=== PATIENT | female | born 1965 | race African-American/Black ===

== ENCOUNTER 2021-02-23 00:17 | Emergency (ER) | payer MEDICAID ==
[~2021-02-23] VITALS: Ht 154.9 cm; Wt 90.9 kg
[2021-02-23] MEDS ORDERED: QUET300T2 PO (00:25)
[2021-02-23 02:09] LABS: COVID AG,FIA SOURCE NASOPHARYNGEAL
[2021-02-23 02:35] LABS: EOSINOPHILS % (AUTO) 1.5 % (1.0-6.0); HEMATOCRIT 46.8 % (36-46); HEMOGLOBIN 15.6 g/dL (12.0-16.0); LYMPHOCYTES # (AUTO) 1.5 K/uL (1.0-4.8); LYMPHOCYTES % (AUTO) 26.4 % (22.0-44.0); MEAN CORPUSCULAR HEMOGLOBIN 29.7 pg (26.0-34.0); MEAN CORPUSCULAR HGB CONC 33.2 G/dL (31.0-37.0); MEAN CORPUSCULAR VOLUME 90 fL (80-100); MONOCYTES # (AUTO) 0.5 K/uL (0.1-1.0); MONOCYTES % (AUTO) 9.1 % (2.0-9.0); NEUTROPHILS # (AUTO) 3.6 K/uL (1.8-7.7); PLATELET COUNT (AUTO) 402 K/uL (150-450); RED BLOOD CELL COUNT(AUTO) 5.23 MIL/uL (4.00-5.20); RED CELL DISTRIBUTION WIDTH 15.3 % (11.5-14.5)
[2021-02-23 02:36] LABS: ANION GAP 6 mmol/L (8-16); CALCIUM, TOTAL 10.4 mg/dL (8.8-10.5); CARBON DIOXIDE 30 mmol/L (22-29); CHLORIDE 95 mmol/L (98-107); CREATININE 0.54 mg/dL (0.60-1.30); GLUCOSE,RANDOM 226 mg/dL (70-110); POTASSIUM 4.6 mmol/L (3.5-5.1); SODIUM SERUM 131 mmol/L (136-145); UREA NITROGEN, BLOOD 12 mg/dL (7-18)
[2021-02-23 02:42] LABS: GLOMERULAR FILTR. RATE CALC > 60 mL/min (>60)
[2021-02-23 02:43] LABS: ALANINE AMINOTRANSFERASE 23 U/L (12-78); ALBUMIN 4.2 g/dL (3.4-5.0); ALKALINE PHOSPHATASE 140 U/L (46-116); ASPARTATE AMINOTRANSFERASE 24 U/L (15-37); BILIRUBIN,TOTAL 0.5 mg/dL (0.1-1.0); LIPASE 48 U/L (73-393); TOTAL PROTEIN, SERUM 8.2 g/dL (6.4-8.2)
[2021-02-23] MEDS ORDERED: KETOROLAC TROMETHAMINE 30 MG/ML VIAL IVP ONE (03:45)
[2021-02-23] MEDS ORDERED: SODIUM CHLORIDE 0.9% 1,000 ML IV ONE (03:45)
[2021-02-23] MEDS ORDERED: MAG HYDROX/AL HYDROX/SIMETH ES 30 ML SUSPENSION UDCUP PO ONE (04:30)
[2021-02-23] MEDS ORDERED: FAMOTIDINE 20 MG TABLET PO ONE (04:30)
[2021-02-23 04:45] VITALS: BP 120/80
== END 2021-02-23 05:37 | disposition home or self-care (01) ==
LOC: EMS 00:19 → EDBD 00:19 → EMS 05:37
DX: K21.9 Gastro-esophageal reflux disease without esophagitis (principal); R10.10 Upper abdominal pain, unspecified; E11.65 Type 2 diabetes mellitus with hyperglycemia; F20.9 Schizophrenia, unspecified; F17.210 Nicotine dependence, cigarettes, uncomplicated; F15.90 Other stimulant use, unspecified, uncomplicated; Z79.899 Other long term (current) drug therapy; Z88.8 Allergy status to other drugs, medicaments and biological substances; Z20.822 Contact with and (suspected) exposure to COVID-19
CPT/HCPCS: 36415; 71045; 74176; 80053; 83690; 84484; 85025; 87426; 93005; 96361; 96374; 99285; G0480; J1885; J7030

== ENCOUNTER 2021-03-25 15:09 | Inpatient (IN) | payer MEDICAID ==
[~2021-03-25] VITALS: Ht 154.9 cm; Wt 92.4 kg
[~2021-03-25 15:09] MED LIST: QUET300T2 PO
[2021-03-25] MEDS ORDERED: GABAPENTIN 300 MG CAPSULE PO ONE (16:15)
[2021-03-25] MEDS ORDERED: KETOROLAC TROMETHAMINE 10 MG TABLET PO ONE (16:15)
[2021-03-25] MEDS ORDERED: ACETAMINOPHEN 500 MG TABLET PO ONE (16:15)
[2021-03-25 16:49] LABS: BASOPHILS % (AUTO) 0.9 % (0.0-2.0); EOSINOPHILS % (AUTO) 0.7 % (1.0-6.0); HEMOGLOBIN 13.5 g/dL (12.0-16.0); LYMPHOCYTES # (AUTO) 1.6 K/uL (1.0-4.8); LYMPHOCYTES % (AUTO) 20.2 % (22.0-44.0); MEAN CORPUSCULAR HEMOGLOBIN 30.2 pg (26.0-34.0); MEAN CORPUSCULAR VOLUME 92 fL (80-100); MONOCYTES # (AUTO) 1.2 K/uL (0.1-1.0); MONOCYTES % (AUTO) 15.2 % (2.0-9.0); PLATELET COUNT (AUTO) 289 K/uL (150-450); RED BLOOD CELL COUNT(AUTO) 4.48 MIL/uL (4.00-5.20); RED CELL DISTRIBUTION WIDTH 14.3 % (11.5-14.5)
[2021-03-25] MEDS ORDERED: HydrOXYzine HCL 50 MG TABLET PO ONE (17:00)
[2021-03-25] MEDS ORDERED: VANCOMYCIN HCL 1 GM/D5% WATER 200 ML IV ONE (17:15)
[2021-03-25] MEDS ORDERED: PIPERACILLIN/TAZO 3.375 GM/D5W 50 ML IV ONE (17:15)
[2021-03-25 18:10] LABS: ALANINE AMINOTRANSFERASE 16 U/L (12-78); ALKALINE PHOSPHATASE 121 U/L (46-116); ANION GAP 13 mmol/L (8-16); ASPARTATE AMINOTRANSFERASE 16 U/L (15-37); BILIRUBIN,TOTAL 0.5 mg/dL (0.1-1.0); CALCIUM, TOTAL 9.5 mg/dL (8.8-10.5); CARBON DIOXIDE 27 mmol/L (22-29); CHLORIDE 95 mmol/L (98-107); CREATININE 0.72 mg/dL (0.60-1.30); GLOMERULAR FILTR. RATE CALC > 60 mL/min (>60); GLUCOSE,RANDOM 332 mg/dL (70-110); SODIUM SERUM 135 mmol/L (136-145); TOTAL PROTEIN, SERUM 8.1 g/dL (6.4-8.2); UREA NITROGEN, BLOOD 2 mg/dL (7-18)
[2021-03-25 18:12] LABS: LACTIC ACID 1.6 mmol/L (0.4-2.0)
[2021-03-25 18:14] LABS: POTASSIUM 2.9 mmol/L (3.5-5.1)
[2021-03-25] MEDS ORDERED: POVIDONE-IODINE 10% 15 ML SOLUTION UD TP ONE (18:30)
[2021-03-25] MEDS ORDERED: MORPHINE SULFATE 2 MG/ML SYRINGE IVP PRN (20:15)
[2021-03-25] MEDS ORDERED: BISACODYL 10 MG RECTAL RECTAL SUPPOSITORY PR PRN (20:15)
[2021-03-25] MEDS ORDERED: MAGNESIUM HYDROXIDE SUSPENSION 30 ML UDCUP PO PRN (20:15)
[2021-03-25] MEDS ORDERED: HYDROCODONE/ACETAMINOPHEN 5-325 MG TABLET PO PRN (20:15)
[2021-03-25] MEDS ORDERED: ZOLPIDEM TARTRATE 5 MG TABLET PO PRN (20:15)
[2021-03-25] MEDS ORDERED: ONDANSETRON HCL 4 MG/2 ML VIAL IVP PRN (20:15)
[2021-03-25] MEDS ORDERED: POTASSIUM CHLORIDE 20 MEQ ER TABLET PO PRN (20:30)
[2021-03-25] MEDS: DOCUSATE SODIUM 100 MG CAPSULE PO SCH (20:58)
[2021-03-25] MEDS: QUEtiapine FUMARATE 300 MG TABLET PO SCH (20:59)
[2021-03-25] MEDS: POTASSIUM CHL 10 MEQ/WATER 50 ML IV PRN (23:23)
[2021-03-25 23:24] LABS: COVID AG,FIA SOURCE NASOPHARYNGEAL
[2021-03-26 00:30] VITALS: BP 95/58
[2021-03-26] MEDS ORDERED: SODIUM CHLORIDE 0.9% 500 ML IV ONE (00:40)
[2021-03-26] MEDS: POTASSIUM CHL 10 MEQ/WATER 50 ML IV PRN ×3 (00:52→03:07)
[2021-03-26 03:30] VITALS: BP 136/77
[2021-03-26] MEDS ORDERED: DEXTROSE 50%-WATER 25 GM/50 ML SYRINGE IVP PRN (06:45)
[2021-03-26 07:52] VITALS: BP 122/75
[2021-03-26] MEDS: VANCOMYCIN HCL 1.5 GM in DEXTROSE 5%-WATER 250 ML IV SCH ×2 (08:15→20:13)
[2021-03-26] MEDS: PANTOPRAZOLE SODIUM 40 MG DR TABLET PO SCH (08:18)
[2021-03-26] MEDS: HEPARIN SODIUM,PORCINE 5,000 UNITS/ML VIAL SQ SCH ×3 (08:18→15:35)
[2021-03-26] MEDS: DOCUSATE SODIUM 100 MG CAPSULE PO SCH ×2 (08:18→20:11)
[2021-03-26 11:35] LABS: BASOPHILS % (AUTO) 0.6 % (0.0-2.0); EOSINOPHILS % (AUTO) 0.5 % (1.0-6.0); HEMATOCRIT 37.2 % (36-46); HEMOGLOBIN 12.5 g/dL (12.0-16.0); LYMPHOCYTES # (AUTO) 1.2 K/uL (1.0-4.8); LYMPHOCYTES % (AUTO) 16.9 % (22.0-44.0); MEAN CORPUSCULAR HEMOGLOBIN 30.5 pg (26.0-34.0); MEAN CORPUSCULAR HGB CONC 33.5 G/dL (31.0-37.0); MEAN CORPUSCULAR VOLUME 91 fL (80-100); MONOCYTES % (AUTO) 14.5 % (2.0-9.0); NEUTROPHILS # (AUTO) 4.6 K/uL (1.8-7.7); NEUTROPHILS % (AUTO) 67.5 % (40.0-70.0); PLATELET COUNT (AUTO) 293 K/uL (150-450); RED BLOOD CELL COUNT(AUTO) 4.09 MIL/uL (4.00-5.20); RED CELL DISTRIBUTION WIDTH 14.7 % (11.5-14.5)
[2021-03-26 12:02] LABS: ANION GAP 15 mmol/L (8-16); CALCIUM, TOTAL 8.7 mg/dL (8.8-10.5); CARBON DIOXIDE 22 mmol/L (22-29); CHLORIDE 99 mmol/L (98-107); CREATININE 0.68 mg/dL (0.60-1.30); GLOMERULAR FILTR. RATE CALC > 60 mL/min (>60); HEMOGLOBIN A1C 11.1 % (3.8-5.6); POTASSIUM 3.8 mmol/L (3.5-5.1); SODIUM SERUM 136 mmol/L (136-145); UREA NITROGEN, BLOOD 3 mg/dL (7-18)
[2021-03-26 12:04] LABS: GLUCOSE,RANDOM 407 mg/dL (70-110)
[2021-03-26] MEDS: INSULIN LISPRO 100 UNITS/ML SQ PRN ×3 (12:50→22:36)
[2021-03-26 15:21] LABS: GLUCOMETER DEV NAME(LOC) 6N.1; GLUCOSE,POINT OF CARE 348 MG/DL (70-110)
[2021-03-26] MEDS: ACETAMINOPHEN 325 MG TABLET PO PRN (15:34)
[2021-03-26 16:11] VITALS: BP 116/79
[2021-03-26 17:46] LABS: GLUCOMETER DEV NAME(LOC) 6N.1; GLUCOSE,POINT OF CARE 287 MG/DL (70-110)
[2021-03-26] MEDS: QUEtiapine FUMARATE 300 MG TABLET PO SCH (20:12)
[2021-03-27 07:06] LABS: GLUCOMETER DEV NAME(LOC) 6N.2; GLUCOSE,POINT OF CARE 383 MG/DL (70-110)
[2021-03-27 07:27] VITALS: BP 118/82
[2021-03-27] MEDS: MULTIVITAMINS, THERAPEUTIC TABLET PO SCH (08:09)
[2021-03-27] MEDS: HEPARIN SODIUM,PORCINE 5,000 UNITS/ML VIAL SQ SCH ×3 (08:09→16:19)
[2021-03-27] MEDS: PANTOPRAZOLE SODIUM 40 MG DR TABLET PO SCH (08:09)
[2021-03-27] MEDS: VANCOMYCIN HCL 1.5 GM in DEXTROSE 5%-WATER 250 ML IV SCH (08:09)
[2021-03-27] MEDS: DOCUSATE SODIUM 100 MG CAPSULE PO SCH ×2 (08:09→20:19)
[2021-03-27] MEDS: INSULIN LISPRO 100 UNITS/ML SQ PRN ×4 (09:27→20:24)
[2021-03-27 10:26] LABS: GLUCOMETER DEV NAME(LOC) 6N.2; GLUCOSE,POINT OF CARE 485 MG/DL (70-110)
[2021-03-27 10:26] LABS: GLUCOMETER DEV NAME(LOC) 6N.2; GLUCOSE,POINT OF CARE 433 MG/DL (70-110)
[2021-03-27] MEDS ORDERED: DEXTROSE 50%-WATER 25 GM/50 ML SYRINGE IVP PRN (11:45)
[2021-03-27] MEDS ORDERED: INSULIN LISPRO 100 UNITS/ML SQ ONE (11:45)
[2021-03-27] MEDS: CLINDAMYCIN HCL 300 MG CAPSULE PO SCH ×2 (12:49→16:18)
[2021-03-27] MEDS: CEPHALEXIN MONOHYDRATE 500 MG CAPSULE PO SCH ×3 (12:49→23:58)
[2021-03-27] MEDS: ACETAMINOPHEN 325 MG TABLET PO PRN (12:49)
[2021-03-27 15:01] VITALS: BP 122/60
[2021-03-27 18:36] LABS: GLUCOMETER DEV NAME(LOC) 6N.1; GLUCOSE,POINT OF CARE 168 MG/DL (70-110)
[2021-03-27] MEDS: QUEtiapine FUMARATE 300 MG TABLET PO SCH (20:19)
[2021-03-27 20:45] VITALS: BP 118/69
[2021-03-27 21:21] LABS: GLUCOMETER DEV NAME(LOC) 6N.1; GLUCOSE,POINT OF CARE 152 MG/DL (70-110)
[2021-03-27 22:51] LABS: GLUCOMETER DEV NAME(LOC) 6N.2; GLUCOSE,POINT OF CARE 405 MG/DL (70-110)
[2021-03-28] MEDS: HEPARIN SODIUM,PORCINE 5,000 UNITS/ML VIAL SQ SCH ×4 (00:01→23:22)
[2021-03-28] MEDS: CLINDAMYCIN HCL 300 MG CAPSULE PO SCH ×4 (00:01→23:22)
[2021-03-28 04:00] VITALS: BP 108/65
[2021-03-28] MEDS: INSULIN LISPRO 100 UNITS/ML SQ PRN ×4 (06:18→20:09)
[2021-03-28] MEDS ORDERED: INSULIN LISPRO 100 UNITS/ML SQ ONE (06:45)
[2021-03-28 06:51] LABS: GLUCOMETER DEV NAME(LOC) 6N.1; GLUCOSE,POINT OF CARE 538 MG/DL (70-110)
[2021-03-28 07:32] VITALS: BP 125/53
[2021-03-28] MEDS: CEPHALEXIN MONOHYDRATE 500 MG CAPSULE PO SCH ×3 (08:31→23:22)
[2021-03-28] MEDS: MULTIVITAMINS, THERAPEUTIC TABLET PO SCH (08:31)
[2021-03-28] MEDS: PANTOPRAZOLE SODIUM 40 MG DR TABLET PO SCH (08:31)
[2021-03-28] MEDS: DOCUSATE SODIUM 100 MG CAPSULE PO SCH ×2 (08:31→20:04)
[2021-03-28] MEDS: INSULIN GLARGINE,HUM.REC.ANLOG 100 UNITS/ML SQ SCH ×2 (08:38→20:09)
[2021-03-28] MEDS ORDERED: INSULIN GLARGINE,HUM.REC.ANLOG 100 UNITS/ML SQ SCH (09:00)
[2021-03-28 19:51] LABS: GLUCOMETER DEV NAME(LOC) 6N.1; GLUCOSE,POINT OF CARE 151 MG/DL (70-110)
[2021-03-28 19:51] LABS: GLUCOMETER DEV NAME(LOC) 6N.1; GLUCOSE,POINT OF CARE 230 MG/DL (70-110)
[2021-03-28 20:00] VITALS: BP 131/65
[2021-03-28] MEDS: QUEtiapine FUMARATE 300 MG TABLET PO SCH (20:04)
[2021-03-28 20:41] LABS: GLUCOMETER DEV NAME(LOC) 6N.1; GLUCOSE,POINT OF CARE 326 MG/DL (70-110)
[2021-03-29] MEDS: INSULIN LISPRO 100 UNITS/ML SQ PRN ×2 (05:17→11:39)
[2021-03-29 05:26] LABS: GLUCOMETER DEV NAME(LOC) 6N.2; GLUCOSE,POINT OF CARE 274 MG/DL (70-110)
[2021-03-29] MEDS: DOCUSATE SODIUM 100 MG CAPSULE PO SCH (08:26)
[2021-03-29] MEDS: CEPHALEXIN MONOHYDRATE 500 MG CAPSULE PO SCH ×2 (08:26→14:46)
[2021-03-29] MEDS: MULTIVITAMINS, THERAPEUTIC TABLET PO SCH (08:26)
[2021-03-29] MEDS: CLINDAMYCIN HCL 300 MG CAPSULE PO SCH ×2 (08:26→14:46)
[2021-03-29] MEDS: HEPARIN SODIUM,PORCINE 5,000 UNITS/ML VIAL SQ SCH (08:26)
[2021-03-29] MEDS: PANTOPRAZOLE SODIUM 40 MG DR TABLET PO SCH (08:26)
[2021-03-29] MEDS: INSULIN GLARGINE,HUM.REC.ANLOG 100 UNITS/ML SQ SCH (08:34)
[2021-03-29] MEDS ORDERED: GLIP5 PO (10:19)
[2021-03-29] MEDS ORDERED: METF-1211 PO (10:19)
[2021-03-29] MEDS ORDERED: CLIN-142 PO (10:20)
[2021-03-29] MEDS ORDERED: CEPH500C2 PO (10:20)
[2021-03-29] MEDS ORDERED: QUET300T2 PO (12:50)
[2021-03-29] MEDS ORDERED: DIPH25CA85 PO (12:50)
[2021-03-29] MEDS ORDERED: DiphenhydrAMINE HCL 25 MG CAPSULE PO SCH (13:00)
[2021-03-29 13:07] LABS: GLUCOMETER DEV NAME(LOC) 6N.2; GLUCOSE,POINT OF CARE 321 MG/DL (70-110)
[2021-03-30] MEDS ORDERED: QUEtiapine FUMARATE 200 MG TABLET PO SCH (09:00)
== END 2021-03-29 16:00 | disposition home health service (06) | DRG 383 ==
LOC: EMS 15:14 → 6N 21:48
PROVIDERS: ADMIT Internal Medicine; ATTEND Internal Medicine
DX: L03.116 Cellulitis of left lower limb (principal); R45.851 Suicidal ideations; F20.0 Paranoid schizophrenia; S71.102A Unspecified open wound, left thigh, initial encounter; S41.102A Unspecified open wound of left upper arm, initial encounter; Z20.822 Contact with and (suspected) exposure to COVID-19; E11.65 Type 2 diabetes mellitus with hyperglycemia; E66.01 Morbid (severe) obesity due to excess calories; E87.6 Hypokalemia; F17.210 Nicotine dependence, cigarettes, uncomplicated; X58.XXXA Exposure to other specified factors, initial encounter; F19.10 Other psychoactive substance abuse, uncomplicated; Z53.20 Procedure and treatment not carried out because of patient's decision for unspecified reasons; Z79.84 Long term (current) use of oral hypoglycemic drugs; Z91.11 Patient's noncompliance with dietary regimen; Z91.14 Patient's other noncompliance with medication regimen; Z88.8 Allergy status to other drugs, medicaments and biological substances; Z79.899 Other long term (current) drug therapy; Y93.89 Activity, other specified; Y92.89 Other specified places as the place of occurrence of the external cause; Y99.8 Other external cause status; Z68.38 Body mass index [BMI] 38.0-38.9, adult
CPT/HCPCS: 80048; 80053; 82962; 83036; 83605; 83735; 85025; 87070; 87081; 87205; 99285; J1644; J1815; J2543; J3370; J3480; J7040; J7060

== ENCOUNTER 2021-04-02 22:58 | Emergency (ER) | payer MEDICAID ==
[~2021-04-02] VITALS: Ht 157.5 cm; Wt 92.0 kg
[~2021-04-02 22:58] MED LIST changes: +CEPH500C2 PO; +CLIN-142 PO; +DIPH25CA85 PO; +GLIP5 PO; +METF-1211 PO
[2021-04-03] MEDS ORDERED: LORazepam 2 MG/ML VIAL IVP ONE (02:45)
[2021-04-03] MEDS ORDERED: SODIUM CHLORIDE 0.9% 1,000 ML IV ONE (02:45)
[2021-04-03 02:53] LABS: BASOPHILS % (AUTO) 0.8 % (0.0-2.0); EOSINOPHILS % (AUTO) 0.7 % (1.0-6.0); HEMATOCRIT 38.5 % (36-46); HEMOGLOBIN 12.7 g/dL (12.0-16.0); LYMPHOCYTES % (AUTO) 26.8 % (22.0-44.0); MEAN CORPUSCULAR HEMOGLOBIN 29.4 pg (26.0-34.0); MEAN CORPUSCULAR VOLUME 89 fL (80-100); MONOCYTES # (AUTO) 0.9 K/uL (0.1-1.0); MONOCYTES % (AUTO) 12.1 % (2.0-9.0); NEUTROPHILS # (AUTO) 4.4 K/uL (1.8-7.7); NEUTROPHILS % (AUTO) 59.6 % (40.0-70.0); PLATELET COUNT (AUTO) 375 K/uL (150-450); RED BLOOD CELL COUNT(AUTO) 4.32 MIL/uL (4.00-5.20); RED CELL DISTRIBUTION WIDTH 14.6 % (11.5-14.5)
[2021-04-03 03:00] LABS: ANION GAP 12 mmol/L (8-16); CALCIUM, TOTAL 9.5 mg/dL (8.8-10.5); CARBON DIOXIDE 27 mmol/L (22-29); CHLORIDE 101 mmol/L (98-107); CREATININE 0.79 mg/dL (0.60-1.30); GLOMERULAR FILTR. RATE CALC > 60 mL/min (>60); GLUCOSE,RANDOM 320 mg/dL (70-110); POTASSIUM 3.4 mmol/L (3.5-5.1); SODIUM SERUM 140 mmol/L (136-145); UREA NITROGEN, BLOOD 4 mg/dL (7-18)
[2021-04-03 03:26] LABS: CREATINE KINASE, TOTAL ONLY 428 U/L (26-192)
[2021-04-03 06:00] VITALS: BP 113/56
== END 2021-04-03 06:30 | disposition home or self-care (01) ==
LOC: EMS 22:59
DX: R07.89 Other chest pain (principal); R41.82 Altered mental status, unspecified; F15.10 Other stimulant abuse, uncomplicated; E11.9 Type 2 diabetes mellitus without complications; F31.9 Bipolar disorder, unspecified; F17.210 Nicotine dependence, cigarettes, uncomplicated; Z88.8 Allergy status to other drugs, medicaments and biological substances; Z79.84 Long term (current) use of oral hypoglycemic drugs; Z79.899 Other long term (current) drug therapy
CPT/HCPCS: 36415; 71045; 80048; 82550; 82962; 84484; 85025; 93005; 96361; 96374; 99285; J2060; J7030